=== PATIENT | male | born 1955 | race Caucasian/White ===

== ENCOUNTER → 2023-03-15 09:01 | Day surgery (SDC) | payer OTHER, SELFPAY | LOC: CATH 09:01 | PROVIDERS: ATTENDING PHYSICIAN Internal Medicine Cardiovascular Disease; FAMILY PHYSICIAN Family Medicine | DX: I48.0 Paroxysmal atrial fibrillation (principal); Z53.09 Procedure and treatment not carried out because of other contraindication; I45.10 Unspecified right bundle-branch block; I25.10 Atherosclerotic heart disease of native coronary artery without angina pectoris; Z95.1 Presence of aortocoronary bypass graft; I35.0 Nonrheumatic aortic (valve) stenosis; I11.0 Hypertensive heart disease with heart failure; I50.32 Chronic diastolic (congestive) heart failure; Z87.891 Personal history of nicotine dependence; E78.2 Mixed hyperlipidemia; E11.40 Type 2 diabetes mellitus with diabetic neuropathy, unspecified; Z79.82 Long term (current) use of aspirin; Z79.84 Long term (current) use of oral hypoglycemic drugs; Z79.4 Long term (current) use of insulin; Z79.01 Long term (current) use of anticoagulants | CPT/HCPCS: 93005 ==

== ENCOUNTER 2023-04-27 05:54 | Day surgery (SDC) | payer OTHER, SELFPAY ==
[2023-04-21 12:54] VITALS: BMI 37.8
[2023-04-21 13:15] LABS: % Basophils 0.8 % (0-2); % Immature Granulocytes 0.4 % (0-0.5); % Monocytes 13.1 % (1.7-9.3); % Neutrophils 58.7 % (42.2-75.2); Absolute Basophils 0.1 10^3/uL (0-0.2); Absolute Eosinophils 0.2 10^3/uL (0-0.7); Absolute Lymphocytes 2.6 10^3/uL (1.2-3.4); Absolute Monocytes 1.3 10^3/uL (0.1-0.6); Hematocrit 46.9 % (39.0-52.0); Mean Corp Hgb Conc. 34.1 g/dL (33.0-37.0); Mean Platelet Volume 9.9 fL (7.4-10.4); Nucleated Red Blood Cells % 0 % (-); Platelet Count 292 10^3/uL (130-400); Red Blood Cell Count 5.52 10^6/uL (4.70-6.10); Red Cell Dist. Width 14.9 % (11.5-14.5); White Blood Cell Count 10.3 10^3/uL (4.8-10.8)
[2023-04-21 13:27] LABS: INR 1.12; PT 14.5 Sec (11.4-14.6)
[2023-04-21 14:03] LABS: ALT (SGPT) 22 U/L (0-50); AST (SGOT) 26 U/L (17-59); Albumin 4.3 g/dl (3.5-5.0); Alkaline Phosphatase 84 U/L (38-126); Blood Urea Nitrogen 46 mg/dl (9-20); Calcium 10.5 mg/dl (8.4-10.2); Carbon Dioxide 28 mmol/L (22-30); Chloride 95 mmol/L (98-107); Estimated Creatinine Clearance 64 ml/min; Glucose 184 mg/dl (70-99); Sodium 137 mmol/L (135-145); Total Bilirubin 0.8 mg/dl (0.2-1.3); Total Protein 7.3 g/dl (6.3-8.2); eGFR > 60.00
[2023-04-27] VITALS (11 sets, daily range): BP systolic 86–115; BP diastolic 58–83
[2023-04-27 07:07] LABS: Glucose - Point of Care 188 mg/dl (70-99)
[2023-04-27] MEDS: NOVOLOG vial 2 UNITS SC ×2 (07:22→11:34)
[2023-04-27 08:51] LABS: ACT-LR - POC 202 Seconds (116-155)
[2023-04-27 08:59] LABS: Glucose - Point of Care 177 mg/dl (70-99)
[2023-04-27 09:04] LABS: ACT-LR - POC 295 Seconds (116-155)
[2023-04-27 09:21] LABS: ACT-LR - POC 310 Seconds (116-155)
[2023-04-27 09:46] LABS: ACT-LR - POC 347 Seconds (116-155)
[2023-04-27 10:09] LABS: ACT-LR - POC 329 Seconds (116-155)
[2023-04-27 10:44] LABS: Glucose - Point of Care 222 mg/dl (70-99)
[2023-04-27 11:42] LABS: Glucose - Point of Care 241 mg/dl (70-99)
--- NOTE | 2023-04-27 11:49 | ITS.CL.ABL ---
Product Grader - Ablation
Ablation
Procedure Report:
ELECTROPHYSIOLOGIC STUDY AND POSSIBLE ABLATION
DATE: April 27, 2023
Primary Care Provider: Dr Bryson Downing
Primary air sampling and monitoring: Dr Mere Sanchez
INDICATION:
Symptomatic Atrial Fibrillation.
Paroxysmal (high burden)
HISTORY: See H and P.
Symptomatic AF, poorly controlled with attempted medical therapy
HAS-BLED: 2
Age
Antiplatelet Therapy
CHADSVASc: 5
HFpEF
HTN
Age
DM
Vascular Dz: CABG
PRESENTING RHYTHM: AF - SR
HISTORY: See H and P.
Symptomatic AF, poorly controlled with attempted medical therapy.
ANTICOAGULATION: Xarelto
'TIME-OUT': called and confirmed.
SEDATION/ANESTHESIA: provided via the anesthesia department using general anesthesia.
PROCEDURE:
Ultrasound Guidance performed by wy was utilized for femoral venous Vascular Access b/l.
A decapolar CS catheter was placed within the CS for mapping and pacing.
The intracardiac ultrasound catheter was positioned in the RA for continuous intracardiac ultrasound imaging.
Heparin bolus and infusion to target ACT at 300 -350 seconds was administered. Transseptal puncture was performed. This entailed advancing a sheath with dilator into the superior vena cava and withdrawing both (monitoring intracardiac ultrasound,
fluoroscopy and tip pressure) with the tip oriented toward the atrial septum. The fossa ovalis was engaged (indicated by sudden displacement of the sheath tip as well as tenting of the fossa seen on intracardiac ultrasound). Left atrial access
required a pass with the Brockenbrough needle extended. Left atrial catheter position was confirmed by pressure monitoring as well as fluoroscopy. The sheath was advanced over the dilator and positioned in the left atrium.
The multipolar mapping catheter (Sysorex) was initially positioned through the transseptal sheath for high density mapping.
Geometry and voltage mapping was again performed using the [place] Pulse Select PFA catheter and Navex 3-D electroanatomical mapping.
A 3-D map was created using Navex . A 3-D reconstructed CT image was compared to the 3-D Navex map to assist in anatomic evaluation, mapping and ablation.
The [place] Pulse Select PFA catheter and system was used for cardiac ablation. Catheter positioning was guided and confirmed using both I.C.E. and fluoroscopy.
PV isolation approach was used to electrically isolate each PV ostia.
First, all PVPs were targeted at each vein. All PVPs were eliminated at each vein demonstrating entrance block. Also pacing from the multipolar mapping catheter around the the circumference of the ostia was performed at 10 ma and 2.0 msec output
to assess for exit block. There is areas of marked fractionation along the posterior wall of the left atrium. Additional ablation lesion set after PVI consisted of left atrial posterior wall isolation which was accomplished with pulsed electric
field ablation utilizing the [employer] pulse select PFA system.
Mapping with the multipolar mapping catheter Cobb Grid was repeated at each PV ostia to assess for any 're connect' and there is no reconnection of the pulmonary vein ostia. But there is reconnection/continued connection at the posterior wall of
the left atrium along the left pulmonary vein anish and the antrum of the left inferior as well as the antrum of the left superior pulmonary veins. This area was once again targeted with pulsed electric field energy. Remapping then demonstrated
full electrical isolation of the posterior wall along with full electrical isolation of the pulmonary veins.
I.C.E. :
Pre-Ablation Post-Ablation
LVEF: 55 % 55 %
WMA: None none
Pericardial effusion: None none
COMPLICATIONS:
None
SUMMARY:
- Mapping and ablation to isolate the PVs
- Additional AF ablation set after PVI.
- 3-D Electroanatomical Mapping
- Intracardiac Ultrasound
Post ablation, I discussed today's findings and results with the patient's .
RECOMMENDATIONS:
- Observe in monitored bed.
- Maintain oral anticoagulation.
- Office visit with me in 3 months.
- Continue cardiovascular care with Dr Mere Sanchez
Copy to:
Dr Bryson Downing
Dr Mere Sanchez
[2023-04-27] MEDS: NOVOLOG vial 4 UNITS SC (13:13)
[2023-04-27 13:22] LABS: Glucose - Point of Care 273 mg/dl (70-99)
--- NOTE | 2023-04-27 15:41 | W.PN.UPDATE ---
Update Note
Progress Note Update
Pt seen post PFA. Bilat groin sites without ht/bleeding, oob to bathroom. Post EKG NSR 80s, no acute changes. Resume Xarelto tonight and continue other meds as before. Followup with Dr. Sanchez as scheduled. Home today if groin sites/tele remain
stable.
== END 2023-04-27 15:35 | disposition home or self-care (01) ==
LOC: CATH 05:54
PROVIDERS: ATTENDING PHYSICIAN Internal Medicine Cardiovascular Disease; FAMILY PHYSICIAN Family Medicine; OTHER PHYSICIAN Internal Medicine Cardiovascular Disease
DX: I48.0 Paroxysmal atrial fibrillation (principal); I11.0 Hypertensive heart disease with heart failure; E11.9 Type 2 diabetes mellitus without complications; Z95.1 Presence of aortocoronary bypass graft; I50.32 Chronic diastolic (congestive) heart failure; E66.9 Obesity, unspecified; Z79.82 Long term (current) use of aspirin; Z79.84 Long term (current) use of oral hypoglycemic drugs; Z79.85 Long-term (current) use of injectable non-insulin antidiabetic drugs; I25.10 Atherosclerotic heart disease of native coronary artery without angina pectoris; Z79.02 Long term (current) use of antithrombotics/antiplatelets; Z95.5 Presence of coronary angioplasty implant and graft
CPT/HCPCS: C1732; C1894; C1769; C1730; C1892; C1759; 36415; 75572; 76937; 80053; 82962; 83735; 85025; 85347; 85610; 86850; 86900; 86901; 93005; 93656; 93657; Q9967

== ENCOUNTER 2024-06-14 11:47 | Inpatient (IN) | payer OTHER, SELFPAY ==
[2024-06-14] VITALS (18 sets, daily range): BP systolic 99–167; BP diastolic 54–100; BMI 37.5
--- NOTE | 2024-06-14 08:27 | ED.GENMED ---
History of Present Illness
General
Chief Complaint: Cold/Flu/URI Symptoms
Source: patient and spouse
Time Seen by Provider: 06/14/24 08:10
History of Present Illness
History of Present Illness:
This patient is a 69-year-old male presents emergency department with complaints of difficulty breathing associated with a cough and feeling unsteady. He states that the symptoms started yesterday, however in speaking with his she says she has
noticed that his breathing has seemed noisy for the past few weeks. He does note orthopnea and PND at least for the last 2 days. He denies weight gain or lower extremity swelling. He has a cough but denies hemoptysis, fever, chills, numbness,
tingling, focal weakness, headache, neck pain, chest pain, palpitations. He did have 1 episode of vomiting today, otherwise no nausea or vomiting. He checks his blood sugars regularly and they have been generally well-controlled. In regards to
feeling 'unsteady', he says he just feels off when he gets up, no episodes of syncope or fall. Of note, patient had Mohs surgery at the right lateral neck yesterday which was well-tolerated.
Past History
Past History
ED Past Medical History: CAD and Other (Diabetes, hypertension, coronary disease with CABG, hyperlipidemia, CONCEPCION, neuropathy)
ED Past Surgical History: Cardiac
Social History
Tobacco: Former smoker
Alcohol: None
Drug: None
Personal:
Living: with family
Employment: Employed
Family History
Family History: CAD
Phy Exam
Physical Exam
Physical Exam:
GENERAL: Alert , in no apparent distress
EYE: pupils equal and reactive, no photophobia
NECK: Supple, no significant adenopathy.
ENT: o/p clr, mmm. Dressing noted at right lateral neck area without bleeding
CARDIAC: Irregularly irregular
LUNGS: Clear breath sounds bilaterally, no acute respiratory distress, no wheezes/rales/rhonchi, occasional nonproductive cough noted
ABDOMEN: Soft, without focal tenderness, no r/g, no cvat
NEUROLOGICAL: Alert and oriented, no focal neuro deficits
SKIN: Warm and dry, skin intact.
MUSCULOSKELETAL: No edema, well perfused.
PSYCH: Normal and appropriate interaction.
Sepsis
Sepsis Screening
Sepsis Assessment: Sepsis
Sepsis Screen
Sepsis Screen: Sepsis
Date: 06/16/24
Time: 05:16
Course
Orders/Labs/Results
Orders:
Orders
06/14/24 Breakfast
2200 calorie (18 carb) Diabetic
At Your Request: Limited Participation
06/14/24 07:57
Electrocardiogram (*1) Urgent
Reason for Study: Shortness of Breath
EKG- Treatment ONCE
06/14/24 08:12
CR Chest - 2 Views Urgent
Comment:
Reason For Exam: SOB and cough
06/14/24 08:33
CT Head W/o Iv Contrast Urgent
Comment:
Reason For Exam: unsteady
06/14/24 08:38
CMP [Comprehensive Metabolic Panel] Urgent
COVID-19 Antigen Urgent
Source: Nasal Swab
Complete Blood Count/With Diff Urgent
D-Dimer Urgent
NT-proBNP Urgent
Troponin I Urgent
Influenza A+B Rapid Molecular Urgent
VIKA Source: Nasal Swab
Specimen Description:
06/14/24 09:29
Azithromycin 500 mg/250 ml [Zithromax Infusion] 500 mg in 250 ml IV NOW
CefTRIAXone [Rocephin] 1,000 mg IV NOW STA
06/14/24 09:31
Electrocardiogram (*1) Urgent
Reason for Study: Shortness of Breath
EKG- Treatment ONCE
06/14/24 09:35
0.9% Sodium Chloride 1000 ml [Nss] 1,900 ml IV NOW STA
06/14/24 10:12
Lactic Acid Urgent
Urinalysis Reflex To Culture Urgent
Date Specimen was Collected: 06/14/24
Time Specimen was Collected: 10:03
Urine Microscopic Reflex Cult Urgent
06/14/24 10:13
Blood Culture Q30M
VIKA Source: Blood/Venous
Specimen Description:
06/14/24 10:14
Blood Culture Q30M
VIKA Source: Blood/Venous
Specimen Description:
06/14/24 10:20
Sterile Water [Sterile Water For Injection] 10 ml .ROUTE .STK-MED ONE
06/14/24 10:22
Acetaminophen [Tylenol] 650 mg PO NOW STA
06/14/24 11:21
Admit/Transfer Patient As Directed
Co-Sign Provider:
Level of Care: Inpatient admission
Assign to:: Telemetry
Physician / Group: Ethan
Diagnosis: Bilateral pneumonia
Reason for Telemetry: Arrhythmia
Date to Stop Telemetry: 06/17/24
Time to Stop Telemetry: 11:00
Reason for Hospitalization: See progress note
Expected length of stay greater than two midnights?: Yes
ELOS- Estimated Length of Stay in days: 4
I certify the patient meets the requirements for IP care: Yes
06/14/24 11:25
Code Status As Directed
Resuscitation Status: Full Code
06/14/24 16:24
Acetaminophen [Tylenol] 650 mg PO Q4HPRN PRN
Albuterol [ProAIR HFA INHALER] 2 puff INH R Q4HPRN PRN
Dextrose 50%-Water [Dextrose 50% Syringe] 12.5 grams IV [id number] PRN
Glucagon [GlucaGen] 1 mg IM PRN PRN
Lorazepam [Ativan] 0.5 mg PO BIDPRN PRN
Mag Hydrox/Al Hydrox/Simeth [Maalox] 15 ml PO QIDPRN PRN
Magnesium Hydroxide [Milk of Magnesia] 30 ml PO Q4HPRN PRN
06/14/24 16:24
Add On- LAB Routine
Tests Added?: procalcitonin - lung indication
Respiratory Culture/Gram Stain Urgent
VIKA Source: Sputum
Specimen Description:
Activity As Directed
Activity Level: Out of Bed-Early Mobility
Bedside Glucose Monitoring As Directed
Frequency: AC&HS
Additional Instructions:: Change to q6h if pt on TPN, tube feeding or not eating
Intake/ Output As Directed
Frequency: Per unit guidelines
Vital Signs As Directed
Frequency: Per unit guidelines
Weight As Directed
Frequency: Once
Comment: on admission
Pt Eval And Treat Routine
Activity Level: As Tolerated
06/14/24 16:30
Insulin Aspart Corrective Low [Novolog Flexpen-Low Resistance] See Protocol SC AC
06/14/24 16:35
Troponin I Q8H
Legionella Urinary Antigen Routine
VIKA Source: Urine
Specimen Description:
Strep pneumoniae Antigen Routine
VIKA Source: Urine
Specimen Description:
06/14/24 18:00
Aspirin Low Dose EC [Aspir Low (Enteric Coated)] 81 mg PO QPM
Insulin Aspart Pen [Novolog Flexpen] 30 units SC AC
Rivaroxaban [Xarelto] 20 mg PO QPM
06/14/24 20:00
Doxycycline [Vibramycin] 100 mg PO BID
Metoprolol Xl [Toprol Xl] 100 mg PO BID
06/14/24 22:00
Ezetimibe [Zetia] 10 mg PO HS
Gabapentin [Neurontin] 100 mg PO HS
Zolpidem Tartrate [Ambien] 5 mg PO HS
06/15/24 01:45
Troponin I Q8H
06/15/24 07:54
Basic Metabolic Panel IN AM
Complete Blood Count/No Diff IN AM
Glycohemoglobin (HgbA1c) IN AM
Troponin I Q8H
06/15/24 08:00
Dapagliflozin [Farxiga] 10 mg PO DAILY
Ferrous Sulfate [Feosol] 325 mg PO DAILY
Furosemide [Lasix] 20 mg PO DAILY
Multivitamin [Theragran] 1 tablet PO DAILY
Pantoprazole [Protonix] 40 mg PO DAILY
Rosuvastatin Calcium [Crestor] 40 mg PO DAILY
06/15/24 10:00
CefTRIAXone [Rocephin] 2,000 mg IV Q24H
06/17/24 11:00
DC Protocol for Telemetry ONCE
Abnormal Lab Results
06/14/24 06/14/24
08:38 10:12
WBC 17.8 H 10^3/uL
(4.8-10.8)
RDW 15.3 H %
(11.5-14.5)
Abs Immat Gran (auto) 0.1 H 10^3/uL
(0-0.05)
Absolute Neuts (auto) 15.2 H 10^3/uL
(1.4-6.5)
Absolute Lymphs (auto) 0.8 L 10^3/uL
(1.2-3.4)
Absolute Monos (auto) 1.7 H 10^3/uL
(0.1-0.6)
Neutrophils % 85.6 H %
(42.2-75.2)
Lymphocytes % 4.2 L %
(20.5-51.1)
Glucose 195 H mg/dl
(70-99)
Troponin I 0.079 H* ng/ml
Ur Occult Blood Reflex 2+ A
(Negative)
Urine Glucose 4+ A
(Negative)
Urine Albumin (Reflex) 3+ A
(Neg - Trace)
06/14/24 08:38
06/14/24 08:38
Vital Signs
Initial and Last Documented VS:
Initial Vital Signs
Temp Pulse Resp BP Pulse Ox
99.6 F 98 16 167/90 94
06/14/24 07:53 06/14/24 07:53 06/14/24 07:53 06/14/24 07:53 06/14/24 07:53
Last Documented Vital Signs
Temp Pulse Resp BP Pulse Ox
98.4 F 81 20 112/65 98
06/16/24 03:00 06/16/24 03:00 06/16/24 03:00 06/16/24 03:00 06/16/24 03:00
*Critical Care Note
Total Time (30-74mins, 75-104mins- exclusive of procedures): Not Applicable
Update Note
Update Note:
Patient presents to the Emergency Department with ____cough, shortness of breath
Number and Complexity of Problems Addressed at the Encounter
� Chronic conditions affecting care:
� Acute Exacerbation and/or Progression of Chronic Illness:
� Differential Diagnosis includes: But not limited to pneumonia, bronchitis, pulmonary edema, PE, CAD, etc. etc.
Amount and/or Complexity of Data to be Reviewed and Analyzed
� I performed an independent evaluation of and my interpretation is:
EKG: Read by me, sinus tachycardia, bundle branch block, PVCs, no acute ischemia detected
CT: Read by radiology NAD
Xrays:Patchy airspace opacities in both lungs, greatest in the bilateral midlung zones, most suspicious for pneumonia. No pleural effusion or pneumothorax. Stable mild enlargement of the cardiac silhouette. Sternotomy wires.
Chronic degenerative changes of the spine.
Laboratory Studies: White blood cell count elevation with left shift, hyperglycemia without associated acidosis, nonspecific troponin elevation, nonspecific BNP elevation,
Other:
� Review of other/old records reveals: Patient had a pulsed field ablation April 2023 records were reviewed concern
� Clinical information was obtained by an independent historian: who is bedside
� Prescriptions/Medications Considered but not given:
� Further testing considered but not performed:
Risk of Complications and/or Morbidity or Mortality of Patient Management
� Social determinants of health affecting care:
� Discussion with other providers (PCP, Hospitalists, Consultants, etc):
� Escalation of care including admission/observation vs risk of discharge considered: Strongly suspect pneumonia based on history physical and testing here. COVID and flu negative. Likely bacterial in origin. Will begin
antibiotics.
\\
9:52 AM blood cultures being drawn at this time, lactic acid as well. Repeat ECG consistent with normal sinus rhythm right bundle branch block, PVCs, no acute ischemia noted. Patient denies chest pain pressure discomfort or other suspected anginal
equivalents. Troponin elevation noted suspect related to noncardiac etiology. Patient will be admitted [facility] text to hospitalist. IV fluids started, no hypotension noted
ED Attending Note
-
Portions of this chart may have been created with voice recognition software.� Occasional wrong word or��sound alike� substitutions may have occurred due to the inherent limitations of voice recognition software.
Discharge Plan
Departure
Patient Disposition: Admit
Date of Disposition: 06/14/24
Time of Disposition: 09:55
Admit to: Telemetry
Presentation/result/management discussed w/ accepting MD/DO: Hospitalist
Condition: Fair
Discharge Problem:
Pneumonia, Sepsis
Interventions
Interventions:
*Risk Screen - Suicide Last Done: 06/14/24 07:57
*General Assessment Last Done: 06/14/24 08:34
*Neglect/Abuse Screening Last Done: 06/14/24 07:57
*ED- Fall Risk Assessment Last Done: 06/14/24 08:34
*ED COVID-19 Vaccine History Last Done: 06/14/24 08:34
*Nursing Disposition Last Done: 06/14/24 19:35
ED- Pulmonary Assessment Last Done: 06/14/24 08:34
Discharge Date and Time
Discharge Date/Time: 06/14/24 19:35
[2024-06-14 09:00] LABS: % Basophils 0.3 % (0-2); % Eosinophils 0.1 % (0-6); % Immature Granulocytes 0.5 % (0-0.5); % Lymphocytes 4.2 % (20.5-51.1); % Monocytes 9.3 % (1.7-9.3); % Neutrophils 85.6 % (42.2-75.2); Absolute Basophils 0.1 10^3/uL (0-0.2); Absolute Immature Granulocytes 0.1 10^3/uL (0-0.05); Absolute Lymphocytes 0.8 10^3/uL (1.2-3.4); Absolute Monocytes 1.7 10^3/uL (0.1-0.6); Absolute Neutrophils 15.2 10^3/uL (1.4-6.5); Hematocrit 43.8 % (39.0-52.0); Hemoglobin 14.5 g/dL (13.0-18.0); Mean Corp Hgb Conc. 33.1 g/dL (33.0-37.0); Mean Corpuscular Hgb 28.5 pg (27.0-31.0); Mean Corpuscular Volume 86.2 fL (80.0-94.0); Mean Platelet Volume 10.3 fL (7.4-10.4); Nucleated Red Blood Cells % 0 % (-); Platelet Count 194 10^3/uL (130-400); Red Blood Cell Count 5.08 10^6/uL (4.70-6.10); Red Cell Dist. Width 15.3 % (11.5-14.5); White Blood Cell Count 17.8 10^3/uL (4.8-10.8)
[2024-06-14 09:09] LABS: ALT (SGPT) 18 U/L (0-50); AST (SGOT) 19 U/L (17-59); Albumin 4.3 g/dl (3.5-5.0); Alkaline Phosphatase 89 U/L (38-126); Blood Urea Nitrogen 18 mg/dl (9-20); Calcium 9.7 mg/dl (8.4-10.2); Carbon Dioxide 22 mmol/L (22-30); Chloride 105 mmol/L (98-107); Estimated Creatinine Clearance 72 ml/min; Glucose 195 mg/dl (70-99); Potassium 4.5 mmol/L (3.5-5.1); Sodium 140 mmol/L (135-145); Total Bilirubin 1.3 mg/dl (0.2-1.3); Total Protein 7.2 g/dl (6.3-8.2); eGFR > 60.00
[2024-06-14 09:16] LABS: D-Dimer 0.31 ug/mlFEU (0.00-0.50)
[2024-06-14 09:21] LABS: COVID-19 Antigen Negative (Negative)
[2024-06-14 09:23] LABS: NT-proBNP 5470 pg/ml; Troponin I 0.079 ng/ml
[2024-06-14] MEDS: ZITHROMAX INFUSION 250 IV (10:25)
[2024-06-14] MEDS: ROCEPHIN 1000 MG IV (10:25)
[2024-06-14] MEDS: TYLENOL 650 MG PO ×2 (10:25→16:40)
[2024-06-14] MEDS: NSS 1900 ML IV (10:27)
[2024-06-14 10:40] LABS: Lactic Acid 1.1 mmol/L (0.7-2.0)
[2024-06-14 10:56] LABS: Urine Albumin 3+ (Neg - Trace); Urine Bilirubin Negative (Negative); Urine Character Clear (Clear); Urine Color Yellow; Urine Glucose 4+ (Negative); Urine Ketone Negative (Negative); Urine Leukocyte Negative (Negative); Urine Nitrite Negative (Negative); Urine Occult Blood 2+ (Negative); Urine Urobilinogen Negative (Neg - 1+)
--- NOTE | 2024-06-14 11:31 | HPS.HSE ---
Family Physician
-
Family Physician: Bryson Downing
Chief Complaint
-
Shortness of breath
History of Present Illness
Patient presents with what he says is 2 weeks of respiratory symptoms or shortness of breath.
was also sick last week with upper respiratory tract symptoms.
He thinks he had a runny nose. He had a little cough but really got worse since Wednesday and was last night. Now little productive of phlegm mostly clear.
Has started to get short of breath. He started to have fevers. Nausea and vomited yesterday for the first time. No diarrhea no abdominal pain. Does not member sore throat.
History of remote pneumonia. Denies any underlying lung conditions. No asthma or emphysema. Non-smoker.
Month ago went to visit [facility] and [facility]. No pets at home.
He is up-to-date with COVID and flu vaccination.
Denies any dysphagia or aspiration of issues.
Patient noted to be septic with elevated white count, fever in the ER. Also has a chest x-ray shows bilateral pneumonia.
Medical History
Past Medical History
Past Medical History: Reports Arrhythmia (Paroxysmal A. fib), CAD, HTN, Hypercholesterolemia, NIDDM, Psychiatric (Depression) and Other (Obesity, sleep apnea CPAP nasal setting 5)
Past Surgical History: Reports Cardiac (CABG)
Social History
Tobacco: Non-smoker
Alcohol: None
Drug: None
Personal:
Living: With Family
Employment: Retired
Family History
Family History: Not pertinent
Allergies / Home Medications
Allergies reflects when Allergies were last updated in [facility].
Home Medications with original date entered in [facility]
Allergy/Medication List:
Allergies
Allergy/AdvReac Type Severity Reaction Status Date / Time
NKA - No Known Allergies Allergy Unknown Uncoded 10/23/21 14:36
Home Medications
amlodipine 10 mg tablet 5 mg PO DAILY 08/11/12
rosuvastatin 40 mg tablet (Crestor) 40 mg PO DAILY 08/11/12
albuterol sulfate 90 mcg/actuation aerosol inhaler 2 puff inhalation R Q4HPRN PRN wheezing, sob 09/17/17
aspirin 325 mg tablet 325 mg PO DAILY 09/17/17
escitalopram oxalate 10 mg tablet 5 mg PO DAILY 09/17/17
ezetimibe 10 mg tablet 10 mg PO QPM 09/17/17
fluticasone propionate 50 mcg/actuation nasal spray,suspension 1 spray intranasal DAILYPRN PRN rhinitis 09/17/17
ibuprofen 200 mg tablet (Advil) 200 mg PO DAILYPRN PRN aches/pains 09/17/17
metoprolol succinate 100 mg tablet,extended release 24 hr (Toprol XL) 50 mg PO BID 09/17/17
multivitamin 1 ea PO DAILY 09/17/17
nitroglycerin 0.4 mg sublingual tablet 0.4 mg sublingual [id number] PRN chest pain 09/17/17
pioglitazone 15 mg-metformin 850 mg tablet 1 ea PO BID ##0 09/17/17
zolpidem 5 mg tablet 5 mg PO HSPRN PRN insomnia 09/17/17
fluticasone furoate 200 mcg-vilanterol 25 mcg/dose inhalation powder (Breo Ellipta) 1 ea IH DAILY 01/25/21
oseltamivir 75 mg capsule 75 mg PO BID #9 caps 01/25/21
rivaroxaban 20 mg tablet (Xarelto) 20 mg PO QPM 01/25/21
Review of Systems
-
A 12 point ROS was completed and negative except as noted: Yes
Physical Exam
Vital Signs
Vital Signs
Temp Pulse Resp BP Pulse Ox
100.5 F H 93 26 106/56 93
06/14/24 10:18 06/14/24 10:30 06/14/24 10:30 06/14/24 10:09 06/14/24 10:30
Physical Exam
General: No Apparent Distress
HEENT: Moist mucous membranes
Respiratory: Crackles and Non Labored Respirations; No Wheezes or Accessory Resp Muscle Use
Cardiac: S1/S2, Irregular Rhythm (PVCs) and Tachycardia
GI: Soft, Non Tender and Other (Obese)
Musculoskeletal: No Edema
Neuro: AO x 3
Psych: Calm; No Confused
Laboratory Results
-
06/14/24 08:38
06/14/24 08:38
Laboratory Results
Lactic Acid 1.1 mmol/L (0.7-2.0) 06/14/24 10:12
Total Bilirubin 1.3 mg/dl (0.2-1.3) 06/14/24 08:38
AST 19 U/L (17-59) 06/14/24 08:38
ALT 18 U/L (0-50) 06/14/24 08:38
Alkaline Phosphatase 89 U/L (38-126) 06/14/24 08:38
Troponin I 0.079 ng/ml H* 06/14/24 08:38
Data Reviewed
-
Diagnostic Radiology: Report Reviewed by me (Chest x-ray)
Lab Data: Labs Reviewed by me
Impression/Plan
-
Bilateral [id number]
Associated sepsis
Patient had a prodrome of upper respiratory illness and now has bilateral lower lobe pneumonia with sepsis. No history of underlying chronic lung disease. Not actively bronchospastic. Blood pressure stable. COVID-19 and flu negative. Check
sputum cultures. Blood cultures drawn in the ER.
Start on ceftriaxone and doxycycline for community-acquired pneumonia. Check a procalcitonin.
Suspect shortness of breath is more likely related to pneumonia. Elevated BNP noted but clinically no signs of heart failure-no JVD, no lower extremity edema, no orthopnea, no chest pain. Follow I&O's closely.
Abnormal troponin-indeterminate range-asymptomatic without chest pain. Suspect nonischemic myocardial injury. Trend troponins. Continue with aspirin and statins.
Paroxysmal atrial fibrillation-status post prior ablation-currently in sinus rhythm. Continue with anticoagulation and beta-moy.
CAD s/p prior CABG-asymptomatic without chest pain
Primary hypertension-continue with his home medication and follow-up. He is on beta-moy.
Diabetes mellitus type 2 on insulin-patient on high doses of insulin. No nausea currently but had emesis at home. Continue with his home dose and follow closely his oral intake. Check a hemoglobin A1c.
Obstructive sleep apnea on CPAP
Full code
[2024-06-14 12:25] LABS: Urine Amorphous Seen
[2024-06-14 12:26] LABS: Urine Granular Cast 0-2 /LPF (0); Urine Red Blood Cell 0-2 /HPF (0-2)
[2024-06-14 12:27] LABS: Urine White Cell 0-2 /HPF (0-5)
[2024-06-14] MEDS: LOPRESSOR 5 MG IV ×3 (16:12→22:34)
--- NOTE | 2024-06-14 16:14 | PTCARENOTE ---
Pt's Tele monitor alarming HR in the 190's. RN in room to check on pt. Pt is asymptomatic. RN educated pt on bearing down and coughing. Pt's HR remained in 180-190's for about 3 minutes. Pt sis break on his own. Guillermina (ED Dr) made aware.
About 10 minutes later pt's HR hit 210. EKG done and showed SVT. Dr. Long made aware. VTO given for Lopressor 5mg IV. Med given. Pt's HR now 90's. See MAR. Pt and spouse advised. Will continue to monitor.
[2024-06-14 16:22] LABS: Glucose - Point of Care 133 mg/dl (70-99)
[2024-06-14] MEDS: NOVOLOG FLEXPEN-LOW RESISTANCE SC (16:40)
[2024-06-14 17:13] LABS: Troponin I 0.057 ng/ml
[2024-06-14 17:20] LABS: Procalcitonin 0.34 ng/ml (0.0-0.25)
[2024-06-14] MEDS: HYDROPHOR TOPICAL (17:27)
--- NOTE | 2024-06-14 17:37 | PTCARENOTE ---
Pt's Procalcitonin was 0.34 and Troponin was 0.057. Dr. Long made aware. No additional orders given at this time. Pt's HR remains in the 80's. Pt denies any symptoms at this time. Spouse at bedside. Call lin within reach. Will continue to
monitor.
[2024-06-14] MEDS: XARELTO 20 MG PO (18:13)
[2024-06-14] MEDS: ASPIR LOW (ENTERIC COATED) 81 MG PO (18:13)
[2024-06-14 18:20] LABS: Glucose - Point of Care 134 mg/dl (70-99)
--- NOTE | 2024-06-14 18:37 | PTCARENOTE ---
Pt's Dinner Glucose was 134. Pt's ordered Novolog 30 units. Per Ligia no Insulin needed at this time. Pt and spouse advised. Will continue to monitor.
[2024-06-14] MEDS: VIBRAMYCIN 100 MG PO (20:20)
[2024-06-14] MEDS: TOPROL XL 100 MG PO (20:20)
--- NOTE | 2024-06-14 20:20 | PTCARENOTE ---
Addendum entered by Chadd Barrios RN 06/14/24 23:08:
Pt HR has been in the 160-200's. Pt was given another dose of Lopressor IV. IV Tylenol for a low grade fever. Pt appeared to converted to afib. EKG done. BUSINESS OFFICE TECHNICIAN notified. Cardizem order.
Original Note:
Pt was admitted to . AAOx3. anxious. Pt is ST w/ PVC and BBB. pt was educated about infection and HR. Pt had a few episode of SVT to the 200's. BUSINESS OFFICE TECHNICIAN notified. Pt was given his PO and IV PRN Lopressor. SBP stable see charting. Will continue to
monitor
[2024-06-14] MEDS: NEURONTIN 100 MG PO (21:07)
[2024-06-14] MEDS: ZETIA 10 MG PO (21:08)
[2024-06-14 21:25] LABS: Glucose - Point of Care 120 mg/dl (70-99)
[2024-06-14 21:54] LABS: Blood Urea Nitrogen 17 mg/dl (9-20); Estimated Creatinine Clearance 78 ml/min; Glucose 130 mg/dl (70-99)
[2024-06-14 21:55] LABS: Carbon Dioxide 20 mmol/L (22-30); Chloride 107 mmol/L (98-107); Magnesium 1.9 mg/dl (1.6-2.3); Potassium 4.1 mmol/L (3.5-5.1); Sodium 139 mmol/L (135-145); eGFR > 60.00
[2024-06-14] MEDS: OFIRMEV 100 IV (22:16)
[2024-06-14 22:46] LABS: Glucose - Point of Care 120 mg/dl (70-99)
[2024-06-14] MEDS: CARDIZEM 5 MG IV (23:20)
[2024-06-15] VITALS (9 sets, daily range): BP systolic 114–148; BP diastolic 66–87
--- NOTE | 2024-06-15 00:02 | W.PN.UPDATE ---
Update Note
Progress Note Update
hr 140s-160s, bp 114/76, afebrile, spo2 96%. Asymptomatic.
K and mag within normal level.
EKG with a-fib
One time order of 5mg IV Lopressor, hr with no change remaining in 140s-160s
Cardizem bolus and drip started.
[2024-06-15] MEDS: CARDIZEM 125 IV (00:14)
--- NOTE | 2024-06-15 00:20 | PTCARENOTE ---
pt was started on Cardizem IV gtt. Pt is on paroxysmal afib. Pt has been going on and off afib. Will continue to monitor HR and with tx plan.
[2024-06-15] MEDS: AMBIEN 5 MG PO ×2 (00:38→20:51)
[2024-06-15 02:26] LABS: Troponin I 0.041 ng/ml
[2024-06-15 06:34] LABS: Glucose - Point of Care 142 mg/dl (70-99)
[2024-06-15] MEDS: NOVOLOG FLEXPEN-LOW RESISTANCE SC ×3 (08:08→17:04)
[2024-06-15 08:19] LABS: Hematocrit 41.5 % (39.0-52.0); Hemoglobin 13.7 g/dL (13.0-18.0); Mean Corpuscular Hgb 28.6 pg (27.0-31.0); Mean Corpuscular Volume 86.6 fL (80.0-94.0); Mean Platelet Volume 10.3 fL (7.4-10.4); Platelet Count 196 10^3/uL (130-400); Red Blood Cell Count 4.79 10^6/uL (4.70-6.10); Red Cell Dist. Width 15.5 % (11.5-14.5); White Blood Cell Count 14.3 10^3/uL (4.8-10.8)
[2024-06-15] MEDS: CRESTOR 40 MG PO (08:43)
[2024-06-15] MEDS: FARXIGA 10 MG PO (08:44)
[2024-06-15] MEDS: TOPROL XL 100 MG PO ×2 (08:44→20:51)
[2024-06-15] MEDS: FEOSOL 325 MG PO (08:44)
[2024-06-15] MEDS: THERAGRAN 1 TABLET PO (08:44)
[2024-06-15] MEDS: PROTONIX 40 MG PO (08:44)
[2024-06-15] MEDS: VIBRAMYCIN 100 MG PO ×2 (08:44→20:51)
[2024-06-15] MEDS: HYDROPHOR 1 APPLIC TOPICAL (08:45)
[2024-06-15 08:49] LABS: Troponin I 0.028 ng/ml
[2024-06-15] MEDS: ATIVAN 0.5 MG PO (08:50)
[2024-06-15 08:58] LABS: Blood Urea Nitrogen 20 mg/dl (9-20); Calcium 9.2 mg/dl (8.4-10.2); Carbon Dioxide 19 mmol/L (22-30); Chloride 107 mmol/L (98-107); Estimated Creatinine Clearance 78 ml/min; Glucose 134 mg/dl (70-99); Potassium 4.2 mmol/L (3.5-5.1); Sodium 141 mmol/L (135-145); eGFR > 60.00
[2024-06-15 09:09] LABS: Glycohemoglobin (HgbA1c) 6.9 % (4.0-5.6)
[2024-06-15] MEDS: MAALOX 15 ML PO (10:13)
[2024-06-15] MEDS: LASIX 20 MG PO (10:15)
[2024-06-15] MEDS: ROCEPHIN 2000 MG IV (10:16)
[2024-06-15] MEDS: STERILE WATER FOR INJECTION 20 ML IV (10:16)
[2024-06-15 11:50] LABS: Glucose - Point of Care 127 mg/dl (70-99)
--- NOTE | 2024-06-15 12:47 | CON.CAR ---
Addendum entered and electronically signed by James Boyce MD 06/15/24 14:10:
patient seen and examined
agree with TRACEE Garza's note and assessment
agree with TRACEE Garza's plan
reviewed tracings
Has baseline incomplete RBBB and PVC's and had atrial couplets/triplets prior to initiation of tachycardia on telemetry which was also recorded on 12 lead ECG. On ECG tachycardia consistent with short RP tachycardia, RBBB aberrancy with P wave
suggesting atrial tachycardia with anterograde 1:1 conduction in an aberrant pattern. 1:1 VA relationship although theoretically cannot rule out a fascicular mechanism. Tachycardia 320msec and warmed down with diltiazem. With slowing mechanism
strongly favors AT with aberrancy.
History of 04/2023 PVI and LAPW isolation with PFA.
Improving with his bilateral PNA
exam:
heent ncat
jvp 6
cor regular
lungs ctab
tele reviewed
abd soft nt nd
no ext edema
aao x3
non focal neurologically
Assessment:
Presentation with cough
B/L PNA
Sepsis
Paroxysmal atrial tachycardia with RVR
Elevated troponin, suspected nonischemic myocardial injury in setting of above
PAF
status post PFA/PVI/LA post wall isolation 04/2023
Chronic OAC with xarelto
PVCs
CAD
s/p RCA PCI 2003
s/p CABG x2 PERES to LAD and SVG to LAD 2017 at [place]
Mild to mod
History of GI bleed 2021
CONCEPCION on CPAP
Obesity
HTN
HLD
DM2
ECHO 07/2022: EF 60 to 65%, stage I diastolic dysfunction, MAC, mild MS, mitral valve area 2.0 cm� with peak/mean gradients 5/2 mmHg respectively, trace MR, mild to moderate with ADARSH 1.2 cm� with peak/mean gradients 32/17 mmHg, trace AR, mildly
dilated aortic root
Plan:
- Patient presented with cough and fever and noted to have sepsis secondary to bilateral pneumonia. COVID and flu negative. Continue treatment through primary service.
- Noted on review of telemetry to have paroxysmal atrial tachycardia with RVR, asymptomatic. Also with PVCs. He has history of A-fib which started in postop setting of CABG, and had temporarily been on amiodarone for a time. He underwent ablation
in 04/2023 as above.
- Currently on Toprol 100 mg twice daily as outpatient, will continue
- Will plan to place on amiodarone 400 mg 3 times daily. Follow QTc by EKG, ~460ms by EKG 06/14.
- K/mag stable
- Last echo from 07/2022, will repeat
- Continue Xarelto
- proBNP 5470. On p.o. Lasix 20 mg daily as an outpatient, will increase to 40 mg daily and follow
- Continue Jardiance
- check TSH
- Trop was elevated at 0.079 on arrival and downtrending. No chest pain. Suspect nonischemic myocardial injury in setting of sepsis/pneumonia. Could consider for outpatient ischemic eval once recovered.
Original Note:
Consultation
Consultation Request
Date/Time Consultation Performed: 06/15/24
Requesting Provider: Dr. Long
Performing Provider: Rosaura Garza PA-C for Dr. Boyce
Reason for Consultation: tachycardia
Medical History
-
Chief Complaint: SOB
History of Present Illness:
Patient is a 69 yo M with PMH of paroxysmal atrial fibrillation status post PFA/PVI/LA post wall isolation 04/2023, chronic OAC with xarelto, CAD s/p RCA PCI 2003, CABGx2 PERES to LAD and SVG to LAD in 2018, GI bleed 2021, CONCEPCION on CPAP, obesity, HTN,
HLD, DM2 who presented to ER for evaluation of cough and weakness. Noted by imaging to have PNA and being treated with antibiotics. covid/flu negative. Noted on tele to have intermittent tachycardia resulting in cardiology consultation. Patient
asymptomatic of prior afib as well as current tachycardia. Had been on amiodarone for PAF post CABG in 2018.
PMH:
PAF
status post PFA/PVI/LA post wall isolation 04/2023
Chronic OAC with xarelto
CAD
s/p RCA PCI 2003
s/p CABG x2 PERES to LAD and SVG to LAD 2018 at [place]
History of GI bleed 2021
CONCEPCION on CPAP
Obesity
HTN
HLD
DM2
Past Medical History
Past Medical History: Other (in HPI)
Social History
Tobacco: Former Smoker
Personal:
Living: With Family
Family History
Family History: CAD and Other (CVA)
Allergies / Home Medications
Allergy/AdvReac Type Severity Reaction Status Date / Time
No Known Allergies Allergy Unverified 10/23/21 19:27
�Medication �Instructions �Recorded �Confirmed �Type
rosuvastatin 40 mg tablet (Crestor) 40 mg PO DAILY High cholesterol 08/11/12 06/14/24 History
albuterol sulfate 90 mcg/actuation 2 puff inhalation R Q4HPRN PRN 09/17/17 06/14/24 History
aerosol inhaler wheezing, sob
ezetimibe 10 mg tablet 10 mg PO HS High cholesterol 09/17/17 06/14/24 History
multivitamin 1 ea PO DAILY Supplement 09/17/17 06/14/24 History
zolpidem 5 mg tablet 5 mg PO HS Insomnia 09/17/17 06/14/24 History
rivaroxaban 20 mg tablet (Xarelto) 20 mg PO QPM Blood clot 01/25/21 06/14/24 History
prevention/tx
metoprolol succinate 100 mg 100 mg PO BID Blood pressure 10/23/21 06/14/24 History
tablet,extended release 24 hr
aspirin 81 mg tablet 81 mg PO QPM Blood Clot 10/24/21 06/14/24 History
Prevention/Tx
furosemide 40 mg tablet 20 mg PO DAILY Blood Pressure 10/24/21 06/14/24 History
pantoprazole 40 mg tablet,delayed 40 mg PO DAILY 30 days #30 tabs 10/25/21 06/14/24 Rx
release
empagliflozin 10 mg tablet 10 mg PO DAILY Diabetes 04/27/23 06/14/24 History
(Jardiance)
ferrous sulfate 325 mg (65 mg 325 mg PO DAILY Supplement 04/27/23 06/14/24 History
iron) tablet (Iron (ferrous
sulfate))
lorazepam 0.5 mg tablet 0.5 mg PO BIDPRN PRN anixety 04/27/23 06/14/24 History
metformin 500 mg tablet,extended 1,500 mg PO QPM Diabetes 04/27/23 06/14/24 History
release 24 hr
tirzepatide 5 mg/0.5 mL 7.5 mg SC LARA Diabetes 04/27/23 06/14/24 History
subcutaneous pen injector
(Mounjaro)
gabapentin 100 mg capsule 100 mg PO HS 06/14/24 06/14/24 History
insulin glargine 100 unit/mL (3 72 unit SC HS Diabetes 06/14/24 06/14/24 History
mL) subcutaneous pen (Lantus
Solostar U-100 Insulin)
insulin lispro 100 unit/mL 32 sliding scale dose SC AC 06/14/24 06/14/24 History
subcutaneous pen (Humalog KwikPen Diabetes
(U-100) Insulin)
Review of Systems
-
History Source: Patient
All other systems: Negative unless noted
Physical Exam
Vital Signs
Temp Pulse Resp BP Pulse Ox
97.6 F 66 18 141/84 94
06/15/24 11:16 06/15/24 11:16 06/15/24 11:16 06/15/24 11:16 06/15/24 11:44
Lab Results
06/15/24 07:54
06/15/24 07:54
Troponin I 0.028 ng/ml D 06/15/24 07:54
Jam-C-Wonaqnszlkb Pept 5470 pg/ml 06/14/24 08:38
Physical Exam
General: No Apparent Distress, Comfortable and Other (obese, cough)
HEENT: Normocephalic, Anicteric and Moist Mucous Membranes
Respiratory: Rhonchi
Cardiac: S1/S2, Regular Rhythm and Murmur
GI: Soft, Non Tender, Non Distended and Normal Bowel Sounds
Musculoskeletal: No Clubbing, No Cyanosis and Edema (trace of B/L LE)
Skin: Warm and Dry
Neuro: AO x 3
Impression / Plan
-
Primary Veneer Measurer: Dr. Mere Sanchez
Primary EP: Dr. Milton Sanchez
Assessment:
Presentation with cough
B/L PNA
Sepsis
Paroxysmal atrial tachycardia with RVR
Elevated troponin, suspected nonischemic myocardial injury in setting of above
PAF
status post PFA/PVI/LA post wall isolation 04/2023
Chronic OAC with xarelto
PVCs
CAD
s/p RCA PCI 2003
s/p CABG x2 PERES to LAD and SVG to LAD 2017 at [place]
Mild to mod
History of GI bleed 2021
CONCEPCION on CPAP
Obesity
HTN
HLD
DM2
ECHO 07/2022: EF 60 to 65%, stage I diastolic dysfunction, MAC, mild MS, mitral valve area 2.0 cm� with peak/mean gradients 5/2 mmHg respectively, trace MR, mild to moderate with ADARSH 1.2 cm� with peak/mean gradients 32/17 mmHg, trace AR, mildly
dilated aortic root
Plan:
- Patient presented with cough and fever and noted to have sepsis secondary to bilateral pneumonia. COVID and flu negative. Continue treatment through primary service.
- Noted on review of telemetry to have paroxysmal atrial tachycardia with RVR, asymptomatic. Also with PVCs. He has history of A-fib which started in postop setting of CABG, and had temporarily been on amiodarone for a time. He underwent ablation
in 04/2023 as above.
- Currently on Toprol 100 mg twice daily as outpatient, will continue
- Will plan to place on amiodarone 400 mg 3 times daily. Follow QTc by EKG, ~460ms by EKG 06/14.
- K/mag stable
- Last echo from 07/2022, will repeat
- Continue Xarelto
- proBNP 5470. On p.o. Lasix 20 mg daily as an outpatient, will increase to 40 mg daily and follow
- Continue Jardiance
- check TSH
- Trop was elevated at 0.079 on arrival and downtrending. No chest pain. Suspect nonischemic myocardial injury in setting of sepsis/pneumonia. Could consider for outpatient ischemic eval once recovered.
Data Reviewed
-
EKG: Tracing Personally Visualized and interpreted
Radiology: Report Reviewed by me
Medical Tests (Nuc Med, Echo etc): Report Reviewed by me
Labs: Labs Reviewed by me
Old Records: Reviewed
--- NOTE | 2024-06-15 13:41 | CM ---
Patient seen bedside, initial assessment completed. Patient presents with what he says is 2 weeks of respiratory symptoms or shortness of breath.
Patient reports that he resides w/ spouse in a 2STH- 2 steps to enter. Independent w/ ambulating, no device required. Independent w/ ADLs. Patient has grab bars in the bathroom. Denies SNF/HC hx, OP therapy in the past. No current OP or home
services at this time.
Address, point of contact and insurance verified
PCP: Bryson Downing
Pharmacy: [facility]. Patient utilizes [facility] for mail orders.
Therapy eval ordered, will watch for any recommendations
Plan: CM will cont to follow for d/c planning
--- NOTE | 2024-06-15 13:41 | W.PN.HOSP.TC ---
Today's Communication/Plan
-
Continue with antibiotics
Decrease Lantus dose.
Hold nutritional insulin.
Consult cardiology.
Assessment / Plan
Assessment / Plan
Bilateral [id number]
Associated sepsis
Patient had a prodrome of upper respiratory illness and now has bilateral lower lobe pneumonia with sepsis. No history of underlying chronic lung disease. Not actively bronchospastic on admission. Blood pressure stable. COVID-19 and flu
negative. Check sputum cultures. Blood cultures drawn in the ER-negative so far. Urine Legionella and Streptococcus pneumonia antigen negative
Continue ceftriaxone and doxycycline for community-acquired pneumonia. Mild elevation in procalcitonin.
Suspect shortness of breath is more likely related to pneumonia. Elevated BNP noted but clinically no signs of heart failure-no JVD, no lower extremity edema, no orthopnea, no chest pain. Follow I&O's closely.
Improved clinically, improving white count, and no fevers today.
Abnormal troponin-indeterminate range-asymptomatic without chest pain. Suspect nonischemic myocardial injury. Trend troponins. Continue with aspirin and statins.
Paroxysmal atrial fibrillation-status post prior ablation-went into rapid A-fib last night needing Cardizem drip. This morning sinus rhythm with PACs. Consult cardiology. Continue with anticoagulation and beta-moy.
CAD s/p prior CABG-asymptomatic without chest pain
Primary hypertension-continue with his home medication and follow-up. He is on beta-moy.
Diabetes mellitus type 2 on insulin-patient on high doses of insulin. Interestingly not requiring his home dose of insulin so far. May be secondary to diet and decreased intake. Hold nutritional insulin. Decrease Lantus dose at night. Follow on
sliding scale insulin. Check a hemoglobin A1c.
Obstructive sleep apnea on CPAP
Full code
Discussed with RN
Total time spent on today's encounter was 52 minutes which included time spent in counseling the patient/family regarding diagnosis and treatment plan as listed above, goals of care, and symptom management. Case was discussed with nursing staff,
specialists, and care coordinators/case management. All labs and imaging personally reviewed by me. Remainder the time spent in detailed review of previous records, lab data, imaging, and other medical provider documentation.
Anticipated Discharge: > 48 hours
Subjective/Interval History
-
Date of Service: June 15, 2024
Feeling improved in general. No further fevers. Not short of breath at rest.
No nausea vomiting.
Went into rapid A-fib last night. Today in sinus rhythm. Denies any palpitations or chest pain.
Is surprised by the glycemic control despite him not getting his insulin. He thinks it is the dietary intake.
Objective Data
-
Labs:
Laboratory Results
06/15/24
07:54
WBC 14.3 H
Hgb 13.7
Hct 41.5
Plt Count 196
Sodium 141
Potassium 4.2
Chloride 107
Carbon Dioxide 19 L
BUN 20
Creatinine 1.0
Glucose 134 H
Calcium 9.2
Vital Signs:
Vital Signs
Temp Pulse Resp BP Pulse Ox
97.6 F 66 18 141/84 94
06/15/24 11:16 06/15/24 11:16 06/15/24 11:16 06/15/24 11:16 06/15/24 11:44
I&O
06/14/24 06/15/24 06/16/24
06:59 06:59 06:59
Intake Total 240 / 240 480 / 480
Output Total 150 / 150
Balance 90 / 90 480 / 480
Physical Exam
-
General: Comfortable
Respiratory: Wheezes (Occasional in the right base, crackles bibasilar) and Non Labored Respirations; Negative Accessory Resp Muscle Use
Cardiac: S1/S2 and Irregular Rhythm (Sinus rhythm on the monitor); Negative Tachycardic
GI: Soft
Neuro: AO x 3
Psych: Calm
Data Reviewed
-
Labs: Labs Reviewed by me
[2024-06-15] MEDS: TYLENOL 650 MG PO (14:51)
[2024-06-15 15:18] LABS: TSH Reflex To Free T4 2.44 uIU/ml (0.47-4.68)
[2024-06-15 16:54] LABS: Glucose - Point of Care 124 mg/dl (70-99)
[2024-06-15] MEDS: PACERONE 400 MG PO ×2 (17:04→20:50)
[2024-06-15] MEDS: XARELTO 20 MG PO (17:08)
[2024-06-15] MEDS: ASPIR LOW (ENTERIC COATED) 81 MG PO (17:08)
[2024-06-15] MEDS: NEURONTIN 100 MG PO (20:50)
[2024-06-15] MEDS: ZETIA 10 MG PO (20:51)
[2024-06-15 21:26] LABS: Glucose - Point of Care 167 mg/dl (70-99)
[2024-06-16 03:00] VITALS: BP 112/65
[2024-06-16 08:05] VITALS: BP 141/92
[2024-06-16 08:07] LABS: Glucose - Point of Care 268 mg/dl (70-99)
[2024-06-16 08:19] LABS: Glucose - Point of Care 231 mg/dl (70-99)
[2024-06-16] MEDS: THERAGRAN 1 TABLET PO (08:25)
[2024-06-16] MEDS: VIBRAMYCIN 100 MG PO (08:25)
[2024-06-16] MEDS: FEOSOL 325 MG PO (08:25)
[2024-06-16] MEDS: CRESTOR 40 MG PO (08:25)
[2024-06-16] MEDS: PROTONIX 40 MG PO (08:25)
[2024-06-16] MEDS: FARXIGA 10 MG PO (08:25)
[2024-06-16] MEDS: LASIX 40 MG PO (08:26)
[2024-06-16] MEDS: HYDROPHOR 1 APPLIC TOPICAL (08:27)
[2024-06-16] MEDS: PACERONE 400 MG PO (08:28)
[2024-06-16] MEDS: TOPROL XL 100 MG PO (08:28)
[2024-06-16] MEDS: NOVOLOG FLEXPEN-LOW RESISTANCE 2 UNITS SC (08:29)
[2024-06-16] MEDS: ATIVAN 0.5 MG PO (08:32)
[2024-06-16] MEDS: STERILE WATER FOR INJECTION 20 ML IV (10:56)
[2024-06-16] MEDS: ROCEPHIN 2000 MG IV (10:56)
--- NOTE | 2024-06-16 11:37 | W.PN.CARDCBS ---
Addendum entered and electronically signed by El Lea MD 06/16/24 12:13:
I saw and examined the patient.
The [employer] or PA's note was reviewed and I agree with the note.
Comment: General: Well developed, well nourished in NAD.
Neck: Supple, no JVD, HJR, carotids +2 B/L, no bruits bilaterally.
Heart: Non displaced PMI, RRR, no murmurs, No S3, S4, no rubs.
Lungs: Scattered rhonchi at the bases
Extremities: No clubbing, cyanosis or edema bilaterally.
Neuro: Grossly nonfocal, awake, alert and oriented x3.
Atrial tachycardia has resolved on amiodarone. Will decrease to 200 mg p.o. twice daily. Will arrange EP evaluation as a follow-up to discuss possible ablation as would like to avoid long-term amiodarone at age 69. Stable cardiology status for
discharge. Follow-up has been arranged. Will sign off, call with questions
Original Note:
Today's Communication / Plan
-
burden of PAT decreasing
amiodarone 200mg BID for 1 month then decrease to 200mg daily
xarelto 20mg QPM
lasix 40mg po daily
BMP in 1 week
OP EP evaluation arranged
Impression / Plan
-
Primary Nuclear Engineer: Dr. Mere Sanchez
Primary EP: Dr. Milton Sanchez
Assessment:
Presentation with cough
B/L PNA
Sepsis
Paroxysmal atrial tachycardia with RVR
Elevated troponin, suspected nonischemic myocardial injury in setting of above
PAF
status post PFA/PVI/LA post wall isolation 04/2023
Chronic OAC with xarelto
PVCs
CAD
s/p RCA PCI 2003
s/p CABG x2 PERES to LAD and SVG to LAD 2017 at [place]
Mild to mod
History of GI bleed 2021
CONCEPCION on CPAP
Obesity
HTN
HLD
DM2
ECHO 07/2022: EF 60 to 65%, stage I diastolic dysfunction, MAC, mild MS, mitral valve area 2.0 cm� with peak/mean gradients 5/2 mmHg respectively, trace MR, mild to moderate with ADARSH 1.2 cm� with peak/mean gradients 32/17 mmHg, trace AR, mildly
dilated aortic root
Echo 06/15/2024: EF 50 to 55%, mild apical hypokinesis, mild concentric LVH, mild MS with mean gradient 5 mmHg, mild MR, mild to mod /mild AR with peak/mean gradients 40/20 mmHg, ADARSH 1.2 cm�, PAP 30 to 35 mmHg
Plan:
- Continue treatment of pneumonia per primary service
- Noted to have runs of paroxysmal atrial tachycardia with RVR, asymptomatic. Also with frequent PVCs. He has history of A-fib starting in postop setting of CABG and had temporarily been on Amio at that time. He then underwent ablation 04/2023.
We initiated amiodarone 06/15/2024, and overnight burden of PAT significantly improving. He does remain with some PVCs.
- Will plan for discharge on amiodarone 200 mg twice daily for 1 month then decrease to 200 mg daily. Will continue Toprol 100 mg twice daily in addition
- Continue Xarelto
- TSH within normal limits
- Echo with results as above, EF remains preserved with mild to moderate
- P.o. Lasix increased from 20 mg daily to 40 mg daily this admission as proBNP was elevated at 5470.
- Continue outpatient Jardiance
- Trop was elevated at 0.079 on arrival and downtrending. No chest pain. Suspect nonischemic myocardial injury in setting of sepsis/pneumonia. Could consider for outpatient ischemic eval once recovered.
- Outpatient EP follow-up arranged
- BMP in 1 week upon DC
Progress Note - Nuclear Engineer
Subjective
Date of Service: June 16, 2024
no issues overnight noted. remains with some cough
Objective
Labs:
06/15/24 07:54
06/15/24 07:54
Labs
Hgb 13.7 g/dL (13.0-18.0) 06/15/24 07:54
Hct 41.5 % (39.0-52.0) 06/15/24 07:54
Plt Count 196 10^3/uL (130-400) 06/15/24 07:54
Sodium 141 mmol/L (135-145) 06/15/24 07:54
Potassium 4.2 mmol/L (3.5-5.1) 06/15/24 07:54
BUN 20 mg/dl (9-20) 06/15/24 07:54
Creatinine 1.0 mg/dL (0.7-1.3) 06/15/24 07:54
Glucose 134 mg/dl (70-99) H 06/15/24 07:54
Troponins
06/14/24 06/14/24 06/15/24
08:38 16:35 01:45
Troponin I 0.079 H* 0.057 H* D 0.041 H*
06/15/24
07:54
Troponin I 0.028 D
Vital Signs and I&O:
Vital Signs
Temp Pulse Resp BP Pulse Ox
98.3 F 82 20 141/92 94
06/16/24 08:05 06/16/24 08:26 06/16/24 08:05 06/16/24 08:26 06/16/24 08:05
Vital Signs
Temp Pulse Resp BP Pulse Ox
98.3 F 82 20 141/92 94
06/16/24 08:05 06/16/24 08:26 06/16/24 08:05 06/16/24 08:26 06/16/24 08:05
Intake & Output
06/14/24 06/15/24 06/16/24 06/17/24
07:59 07:59 07:59 07:59
Intake Total 240 / 240 1520 / 1520
Output Total 150 / 150
Balance 90 / 90 1520 / 1520
[2024-06-16 11:52] VITALS: BP 121/74
[2024-06-16 12:02] LABS: Glucose - Point of Care 156 mg/dl (70-99)
--- NOTE | 2024-06-16 13:52 | W.PN.HOSP.TC ---
Today's Communication/Plan
-
DC
Assessment / Plan
Assessment / Plan
Bilateral [id number]
Associated sepsis
Patient had a prodrome of upper respiratory illness and now has bilateral lower lobe pneumonia with sepsis. No history of underlying chronic lung disease. Not actively bronchospastic on admission. Blood pressure stable. COVID-19 and flu
negative. Check sputum cultures. Blood cultures drawn in the ER-negative so far. Urine Legionella and Streptococcus pneumonia antigen negative
Continue ceftriaxone and doxycycline for community-acquired pneumonia. Mild elevation in procalcitonin.
Suspect shortness of breath is more likely related to pneumonia. Elevated BNP noted but clinically no signs of heart failure-no JVD, no lower extremity edema, no orthopnea, no chest pain. Diuretics per cardiology.
Improved clinically, improving white count, and no fevers .
Check ambulatory pulse ox and if more than 88% will discharge patient home. Transition onto cefdinir for another 5 days and doxycycline for another 3 days. Advised to follow-up chest x-ray in 2 to 3 weeks..
Abnormal troponin-indeterminate range-asymptomatic without chest pain. Suspect nonischemic myocardial injury. Continue with aspirin and statins.
Paroxysmal atrial flutter per cards-status post prior ablation-Now in sinus rhythm .appt cardiology input. Pt started on Amio po for rate control. Follow with EP arranged. Continue with anticoagulation and beta-moy.
CAD s/p prior CABG-asymptomatic without chest pain
Primary hypertension-continue with his home medication and follow-up. He is on beta-moy.
Diabetes mellitus type 2 on insulin-patient on high doses of insulin. Interestingly not requiring his home dose of insulin so far. May be secondary to diet and decreased intake. Hemoglobin A1c 6.9. Reviewed accuchecks log from CGM - low on 06/12
and very tight other days. Pt has seen what dietary discretions can do to blood sugars and wants to go strict on diet on DC - Advised to halve the insulin doses and increase by 10% each insulin doses if blood sugars <180. He follows with Endo -
advised post dc follow up with them
Obstructive sleep apnea on CPAP
Full code
Discussed with
DC home today
Total time of dc 32 min
Anticipated Discharge: Today
Subjective/Interval History
-
Date of Service: June 16, 2024
Feels improved.
No fevers.
Denies shortness of breath at rest. No chest pain. No palpitations.
No nausea vomiting. Tolerating diet.
Objective Data
-
Vital Signs:
Vital Signs
Temp Pulse Resp BP Pulse Ox
98.1 F 82 18 121/74 95
06/16/24 11:52 06/16/24 11:52 06/16/24 11:52 06/16/24 11:52 06/16/24 11:52
I&O
06/15/24 06/16/24 06/17/24
06:59 06:59 06:59
Intake Total 240 / 240 1520 / 1520
Output Total 150 / 150
Balance 90 / 90 1520 / 1520
Review of Systems
-
Neuro: Denies Dizzy
Physical Exam
-
General: No Apparent Distress
Respiratory: Clear to Auscultation and Non Labored Respirations; Negative Accessory Resp Muscle Use
Cardiac: Regular Rhythm and S1/S2; Negative Tachycardic
GI: Soft
Neuro: AO x 3
Psych: Calm; Negative Confused
[2024-06-16] MEDS: NOVOLOG FLEXPEN-LOW RESISTANCE SC (14:09)
--- NOTE | 2024-06-16 14:59 | CM ---
Patient is stable for d/c today.
Met w/ patient bedside, agreeable to d/c today. Spouse will transport home
Therapy attempted to see today.
IMM verbally reviewed, patient given copy, copy placed on chart
No CM needs identified at this time
Plan: Home; no needs
[2024-06-16 15:58] VITALS: BP 121/70
== END 2024-06-16 16:28 | disposition home or self-care (01) | DRG 871 ==
LOC: 4 EAST ACU 11:47
PROVIDERS: Nurse Practitioner Family; ADMITTING PHYSICIAN Internal Medicine; EMERGENCY PHYSICIAN Emergency Medicine; FAMILY PHYSICIAN Family Medicine; OTHER PHYSICIAN Internal Medicine Cardiovascular Disease
PROC: 5A09357 Assistance with Respiratory Ventilation, Less than 24 Consecutive Hours, Continuous Positive Airway Pressure (ICD-10-PCS; 2024-06-14)
DX: A41.9 Sepsis, unspecified organism (principal); J18.9 Pneumonia, unspecified organism; I5A Non-ischemic myocardial injury (non-traumatic); I25.10 Atherosclerotic heart disease of native coronary artery without angina pectoris; Z95.1 Presence of aortocoronary bypass graft; I10 Essential (primary) hypertension; E11.40 Type 2 diabetes mellitus with diabetic neuropathy, unspecified; G47.33 Obstructive sleep apnea (adult) (pediatric); Z79.4 Long term (current) use of insulin; Z87.891 Personal history of nicotine dependence; Z79.82 Long term (current) use of aspirin; G47.00 Insomnia, unspecified; Z11.52 Encounter for screening for COVID-19; E66.9 Obesity, unspecified; Z68.37 Body mass index [BMI] 37.0-37.9, adult; E78.00 Pure hypercholesterolemia, unspecified; I48.0 Paroxysmal atrial fibrillation; Z98.61 Coronary angioplasty status; Z79.01 Long term (current) use of anticoagulants; Z79.899 Other long term (current) drug therapy; Z79.84 Long term (current) use of oral hypoglycemic drugs
CPT/HCPCS: 70450; 71046; 80048; 80053; 81003; 81015; 82962; 83036; 83605; 83735; 83880; 84145; 84443; 84484; 85025; 85027; 85379; 87040; 87449; 87502; 87811; 87899; 93005; 93306; 96365; 96375; 99285; J0153; Q9950

== ENCOUNTER → 2024-08-02 07:09 | Outpatient (REF) | payer OTHER, SELFPAY | LOC: RCS 07:09 | PROVIDERS: ATTENDING PHYSICIAN Nurse Practitioner; FAMILY PHYSICIAN Family Medicine | DX: I47.19 Other supraventricular tachycardia (principal); R79.89 Other specified abnormal findings of blood chemistry | CPT/HCPCS: 71046; 78452; 93017; A9500 ==

== ENCOUNTER 2024-09-18 07:33 | Day surgery (SDC) | payer OTHER, SELFPAY ==
[2024-09-05 11:23] VITALS: BMI 39.8
[2024-09-05 12:22] LABS: Hematocrit 45.5 % (39.0-52.0); Hemoglobin 14.8 g/dL (13.0-18.0); Mean Corp Hgb Conc. 32.5 g/dL (33.0-37.0); Mean Corpuscular Volume 89.4 fL (80.0-94.0); Nucleated Red Blood Cells % 0 % (-); Platelet Count 230 10^3/uL (130-400); Red Cell Dist. Width 15.8 % (11.5-14.5)
[2024-09-05 12:30] LABS: INR 1.05; PT 14.1 Sec (11.4-14.6)
[2024-09-05 12:35] LABS: ALT (SGPT) 25 U/L (0-50); AST (SGOT) 20 U/L (17-59); Albumin 4.5 g/dl (3.5-5.0); Alkaline Phosphatase 80 U/L (38-126); Blood Urea Nitrogen 27 mg/dl (9-20); Calcium 10.1 mg/dl (8.4-10.2); Carbon Dioxide 29 mmol/L (22-30); Chloride 104 mmol/L (98-107); Estimated Creatinine Clearance 75 ml/min; Glucose 132 mg/dl (70-99); Magnesium 2.2 mg/dl (1.6-2.3); Potassium 4.5 mmol/L (3.5-5.1); Sodium 141 mmol/L (135-145); Total Protein 7.6 g/dl (6.3-8.2); eGFR > 60.00
[2024-09-18] VITALS (12 sets, daily range): BP systolic 108–148; BP diastolic 60–88
[2024-09-18] MEDS: NSS 500 IV (09:16)
--- NOTE | 2024-09-18 10:25 | ITS.CL.ABL ---
[employer] - Ablation
Ablation
Procedure Report:
ELECTROPHYSIOLOGIC STUDY AND POSSIBLE ABLATION
DATE: 09/18/24
Primary Care Provider: Dr Bryson Downing
Primary sales service rep: Dr Mere Sanchez
INDICATION:
Symptomatic Atrial Fibrillation.
Paroxysmal
HISTORY: See H and P.
Symptomatic AF, poorly controlled with attempted medical therapy.
He underwent PFA PVI with Pulse Select system 04/27/23 and has recurred with symptomatic PAF.
He has a complex past medical history which includes heart failure with preserved ejection fraction, coronary artery disease having undergone coronary artery bypass grafting surgery in 2018, diabetes mellitus and hypertension.
Medical history also includes mild to moderate aortic stenosis. Echocardiogram June 15, 2024 demonstrate LVEF 50-55%. There is mild mitral stenosis with a mean gradient of 5 mmHg and mild mitral regurgitation. Mild aortic insufficiency and mild
to moderate aortic stenosis with peak and mean gradients of 40 and 20 mmHg with a calculated aortic valve area of 1.2 cm sq.
Additional comorbidities include obstructive sleep apnea, he is currently being treated with CPAP therapy.
HAS-BLED: 2
Age
Antiplatelet Therapy
CHADSVASc: 5
CHF, NYHA Class 2, heart failure with preserved ejection fraction
HTN
Age
DM
Vascular Dz: CAD
PRESENTING RHYTHM: SR
HISTORY: See H and P.
Symptomatic AF, poorly controlled with attempted medical therapy.
ANTIARRHYTHMIC DRUG: Amiodarone
ANTICOAGULATION: Rivaroxaban 20 mg daily
'TIME-OUT': called and confirmed.
SEDATION/ANESTHESIA: provided via the anesthesia department using general anesthesia.
PROCEDURE:
Ultrasound Guidance with real-time visualization of needle insertion and vessel patency performed by hi for femoral venous Vascular Access.
Under real-time US guidance, the needle was advanced with negative pressure into the vein. The needle was seen entering the vessel lumen with a good return of dark red flow, the syringe was removed, non-pulsatile, dark red blood low was noted and
the wire was passed without difficulty, then the needle was removed. US confirmed the wire was in the vein, not going into an artery,
Images were taken and saved for the patient's permanent record. Imaging findings typical femoral venous anatomy. Direct visualization of needle puncture into the femoral vein was observed and recorded.
A decapolar CS catheter was placed within the CS for mapping and pacing.
The intracardiac ultrasound catheter was positioned in the RA for continuous intracardiac ultrasound imaging.
Heparin bolus and infusion to target ACT at 300 -350 seconds was administered. Transseptal puncture was performed. This entailed advancing a sheath with dilator into the superior vena cava and withdrawing both (monitoring intracardiac ultrasound,
fluoroscopy and tip pressure) with the tip oriented toward the atrial septum. The fossa ovalis was engaged (indicated by sudden displacement of the sheath tip as well as tenting of the fossa seen on intracardiac ultrasound).
Transseptal puncture was performed. Left atrial catheter position was confirmed by echocardiographic imaging, pressure monitoring (LA mean pressure 18 mm Hg) and fluoroscopy. The sheath was advanced over the dilator and positioned in the left
atrium.
The [facility] multipolar mapping/ablation Sphere-9 catheter was positioned through the transseptal sheath for high density mapping.
Geometry and voltage mapping was performed using the [facility] mapping system for three-dimensional electroanatomical mapping.
Catheter positioning was guided and confirmed using both I.C.E. and fluoroscopy.
High density electroanatomical three-dimensional mapping demonstrated LSPV, LIPV, RSPV, RIPV.
Voltage mapping as well as activation mapping finds reconnection at the left superior vein towards its posterior superior quadrant and towards its anterior quadrant. Additionally there is reconnection of the left inferior pulmonary vein towards its
anterior quadrant. There is reconnection of the right superior pulmonary vein towards its anterior superior quadrant. There is incomplete electrical isolation of the posterior wall of the left atrium.
Ablation strategy included PVI as well as mapping for extra PV contributors to atrial fibrillation which would also be targeted if present.
After electrical isolation of the reconnected left superior, left inferior and right superior pulmonary vein additional areas likely to be extra PV contributors to atrial fibrillation were mapped. These areas demonstrated patchy low voltage as well
as complex fractionated electrograms. These areas can be sites for the formation of rotors which can drive and maintain atrial fibrillation. These areas are known to be significant contributors to initiation and perpetuation of atrial fibrillation.
Additional energy applications/additional ablation sets targeted extra PV contributors to atrial fibrillation.
Targets for additional PFA ablation included:
LA posterior wall targeted with pulsed electric field energy isolating the posterior wall of the left atrium
After ablation of the posterior wall, additional targets were addressed:
LA inferior floor
The ridge of tissue between the left atrial appendage and the left sided pulmonary veins (Ligament of Esa )
These areas were ablated using pulsed electric field energy eliminating the extra PV contributors to atrial fibrillation.
Post ablation mapping finds entrance and exit block at each of the pulmonary veins (LSPV, LIPV, RSPV, RIPV), the LA posterior wall and at the additional lines atthe Inferior/floor of the LA as well as the Ligament of Marshal rendering the sites no
longer able to contribute to atrial fibrillation.
Programmed electrostimulation including burst atrial pacing as well the delivery of decremental extrastimuli down to atrial effective refractory period and no sustained arrhythmias could be induced.
Additional lesions were placed at areas of conduction escape until full isolation (entrance and exit) was achieved.
I.C.E. :
Pre-Ablation Post-Ablation
LVEF: 55 % 55 %
WMA: none none
Pericardial effusion: none none
COMPLICATIONS:
None
SUMMARY:
- Mapping and ablation to isolate the PVs resulting in electrical isolation of the pulmonary veins
- Additional AF ablation sets X 2 after PVI (LA posterior wall, Inf/floor of the LA posterior wall, ligament of Esa) resulting in elimination of the targeted extra PV contributors to atrial fibrillation.
- 3-D Electroanatomical Mapping
- Intracardiac Ultrasound
- Ultrasound guidance for vascular access
Post ablation, I discussed today's findings and results with the patient's , Silvia.
RECOMMENDATIONS:
- Observe in monitored bed.
- Maintain oral anticoagulation.
- Maintain amiodarone post discharge and at his first outpatient follow-up visit we will consider stopping if he maintains sinus rhythm
- Office visit with Bianca Johnson, CL[employer] MONITOR has been scheduled for January 04, 2025
- Continue cardiovascular care with Dr Mere Sanchez
Copy to:
Dr Bryson Downing
Dr Mere Sanchez
[2024-09-18 11:19] LABS: ACT-LR - POC 253 Seconds (116-155)
[2024-09-18 11:40] LABS: ACT-LR - POC 274 Seconds (116-155)
[2024-09-18 11:48] LABS: Glucose - Point of Care 173 mg/dl (70-99)
== END 2024-09-18 16:45 | disposition home or self-care (01) ==
LOC: CATH 07:33
PROVIDERS: ATTENDING PHYSICIAN Internal Medicine Cardiovascular Disease; FAMILY PHYSICIAN Family Medicine; REFERRING PHYSICIAN Internal Medicine Cardiovascular Disease
DX: I48.0 Paroxysmal atrial fibrillation (principal); I47.19 Other supraventricular tachycardia; I11.0 Hypertensive heart disease with heart failure; I50.32 Chronic diastolic (congestive) heart failure; E78.5 Hyperlipidemia, unspecified; Z95.5 Presence of coronary angioplasty implant and graft; I25.10 Atherosclerotic heart disease of native coronary artery without angina pectoris; Z95.1 Presence of aortocoronary bypass graft; E11.9 Type 2 diabetes mellitus without complications; Z79.4 Long term (current) use of insulin; Z79.85 Long-term (current) use of injectable non-insulin antidiabetic drugs; E66.01 Morbid (severe) obesity due to excess calories; Z68.39 Body mass index [BMI] 39.0-39.9, adult; G47.33 Obstructive sleep apnea (adult) (pediatric); Z87.891 Personal history of nicotine dependence; J45.20 Mild intermittent asthma, uncomplicated; F32.A Depression, unspecified; F41.9 Anxiety disorder, unspecified; K21.9 Gastro-esophageal reflux disease without esophagitis; G47.00 Insomnia, unspecified; J44.9 Chronic obstructive pulmonary disease, unspecified; Z79.82 Long term (current) use of aspirin; Z79.84 Long term (current) use of oral hypoglycemic drugs; Z79.01 Long term (current) use of anticoagulants
CPT/HCPCS: C1894; C1733; C1769; C1766; C1730; C1892; 36415; 80053; 82962; 83735; 85025; 85347; 85610; 86850; 86900; 86901; 93005; 93656; 93657